=== PATIENT | male | born 2000 | race Caucasian/White ===

== ENCOUNTER 2021-01-22 19:24 | Emergency (ER) | payer OTHER ==
[~2021-01-22 19:24] MED LIST: VISTARIL25 MG PO
[2021-01-22] MEDS ORDERED: MUCINEX600 MG PO (21:40)
== END 2021-01-22 21:55 | disposition home or self-care (01) ==
LOC: ER1 19:24
DX: J18.9 Pneumonia, unspecified organism (principal); J06.9 Acute upper respiratory infection, unspecified; J45.909 Unspecified asthma, uncomplicated; F17.210 Nicotine dependence, cigarettes, uncomplicated; Z20.822 Contact with and (suspected) exposure to COVID-19; Z88.8 Allergy status to other drugs, medicaments and biological substances
CPT/HCPCS: 0240U; 71045; 87081; 87880; 99285